=== PATIENT | female | born 1995 | race Caucasian/White ===

== ENCOUNTER 2021-04-16 13:15 | Emergency (ER) | payer BC, SELFPAY ==
[2021-04-16 14:08] VITALS: BP 126/75; PULSE 98; RESP 20; TEMP 37.1; O2SAT 100
--- NOTE | 2021-04-16 15:28 | ED.URI ---
HPI - URI/Sore Throat General Chief Complaint: Upper Respiratory Infection Stated Complaint: Cough/Chest Congestion Time Seen by Provider: 04/16/21 15:28 Source: patient and RN notes reviewed Mode of arrival: ambulatory Limitations: no limitations History of Present Illness HPI Narrative: 25-year-old female who presents to [facility] care with complaints of nasal congestion and cough which started last week did a PCR on Thursday which came back negative. Patient states Thursday she started with a fever and having body aches Thursday fever was of 101.3 she been taking [id number] NyQuil cold and flu. Patient has not had Covid or flu vaccinations MD elicited complaint: fever, cough, rhinorrhea and nasal congestion Related Data Allergies Allergy/AdvReac Type Severity Reaction Status Date / Time No Known Allergies Allergy Unverified 09/26/15 13:16 Review of Systems Review of Systems: CONSTITUTIONAL: Positive for fever, chills, or sweats. EYES: Denies visual changes, redness, or discharge. ENT: Positive rhinorrhea, congestion,no sore throat, or otalgia. CARDIOVASCULAR: Denies chest pain, palpitations, or edema. RESPIRATORY: Positive for cough no dyspnea.tightness with breathing GASTROINTESTINAL: Denies abdominal pain, nausea, vomiting, or diarrhea. GENITOURINARY: Denies dysuria or hematuria. SKIN: Denies rash or itching. MUSCULOSKELETAL: Denies back pain, joint pain, positive for body aches NEUROLOGIC: Denies headache, numbness, or weakness. PSYCHIATRIC: Denies anxiety or depression. All systems reviewed & are unremarkable except as noted in HPI and below PMFSH Past Medical History Medical History (Updated 04/18/21 @ 08:35 by Magdalene Barrera NP) Asthma Bronchitis Fracture of right wrist Pneumonia Surgical History Surgical History (Updated 04/18/21 @ 08:34 by Magdalene Barrera NP) H/O Spinal surgery for scoliosis has Graham rods Social History Social History (Updated 04/18/21 @ 08:36 by Magdalene Barrera NP) Smoking status: Never smoker Alcohol intake: current Alcohol use details: social Substance use: never Living arrangements: with family Gender identity (if verbalized by the patient): Female Comments At time of signature, agree with nursing past medical, surgical, social and family history. There is no relevant family history pertinent to the presenting complaint Exam Narrative: GENERAL:Ill-appearing, well-nourished, and in no acute distress. HEAD: Normocephalic, atraumatic. EYES: PERRLA and EOMI. ENT: Nares red with clear rhinorrhea no epistaxis. Mucous membranes moist.TM's normal with good light relex, throat red with no lesions or exudates, no tonsil enlargement NECK: Supple.no lymphadenopathy CHEST: Clear to auscultation. No respiratory distress.cough with SAO2 100% on room air HEART: Regular rate and rhythm. No murmur heard. Normal peripheral pulses. ABDOMEN: Soft, nontender, nondistended, normal active bowel sounds. EXTREMITIES: Normal range of motion. No edema. SKIN: Warm, dry, no rash. NEURO: No focal deficits. Alert and oriented x3. Course Vital Signs Vital signs: Vital Signs Temperature 37.1 C 04/16/21 14:08 Pulse Rate 98 04/16/21 14:08 Respiratory Rate 20 04/16/21 14:08 Blood Pressure 126/75 04/16/21 14:08 Pulse Oximetry 100 04/16/21 14:08 Temperature 37.1 C 04/16/21 14:08 Pulse Rate 98 04/16/21 14:08 Respiratory Rate 20 04/16/21 14:08 Blood Pressure 126/75 04/16/21 14:08 Pulse Oximetry 100 04/16/21 14:08 MDM - URI/Sore Throat Differential Diagnosis Differential diagnosis: Likely upper respiratory infection, sinusitis, viral infection, influenza and other (COVID) Medical Records Attestation: I reviewed the patient's medical records. Lab Data Attestation: I reviewed the patient's lab results. Lab results narrative: COVID antigen positive, influenza A negative, influenza B negative. Labs: Lab Results 04/16/21 Range/Units
== END 2021-04-16 15:54 | disposition home or self-care (01) ==
PROVIDERS: Emergency Provider Registered Nurse; PCP Hospitalist
DX: U07.1 COVID-19 (principal); J45.909 Unspecified asthma, uncomplicated
CPT/HCPCS: 87426; 87804; 99203; C9803; G0463

== ENCOUNTER 2023-04-06 09:05 | Emergency (ER) | payer OTHER, SELFPAY ==
[2023-04-06 09:55] VITALS: BP 142/82; PULSE 88; RESP 20; TEMP 36.3; O2SAT 98
--- NOTE | 2023-04-06 10:08 | ED.GENADULT ---
HPI - General Adult General Chief complaint: Upper Respiratory Infection Stated complaint: Nausea, Headache,Dizzy, Earache Source: patient, RN notes reviewed and old records reviewed Mode of arrival: ambulatory Limitations: no limitations History of Present Illness HPI narrative: 27-year-old female presents to [facility] with complaints sinus congestion, sinus pain and left earache that started 8 days ago. Patient taking [id number] medications with no relief. Patient denies weakness, dizziness, chest pain, cough, shortness of breath,. MD complaint: Earache Onset (ago): day(s) (8) Related Data Home Medications Medication Instructions Recorded Confirmed cetirizine 10 mg tablet 10 mg PO DAILY 04/06/23 04/06/23 Allergies Allergy/AdvReac Type Severity Reaction Status Date / Time No Known Allergies Allergy Verified 04/06/23 10:13 Review of Systems Constitutional: Constitutional: Denies body ache(s), Denies chills, Denies fatigue, Denies fever(s) and Reports headache(s) Eyes: Eyes: Reports no additional eye complaints and Denies blurry vision ENT: Reports as per HPI, Denies vertigo, Denies dizziness, Denies ear discharge, Reports otalgia, Denies facial pain, Reports headache(s), Reports nasal congestion, Reports nasal discharge, Reports sinus pain, Reports sinus pressure and Denies sore throat Cardiovascular: Cardiovascular: Reports no additional cardiovascular complaints, Denies chest pain, Denies chest pain at rest, Denies rapid heart rate and Denies dyspnea Respiratory: Respiratory: Reports no additional respiratory complaints, Denies chest congestion, Denies cough, Denies pain on inspiration, Denies pain with cough and Denies dyspnea Gastrointestinal: Gastrointestinal: Denies abdominal pain, Denies diarrhea, Denies nausea and Denies vomiting Integumentary/Breasts: Skin/Breast: Denies rash Neurologic: Reports system reviewed and no additional complaints, except as documented, Denies vertigo, Denies dizziness and Denies headache(s) Endocrine: Endocrine: Denies fatigue PMFSH Past Medical History Medical History Asthma Bronchitis Fracture of right wrist Pneumonia Surgical History Surgical History H/O Spinal surgery for scoliosis has Graham rods Social History Social History Smoking status: Never smoker Alcohol intake: current Alcohol use details: social Substance use: never Living arrangements: with family Gender identity (if verbalized by the patient): Female Comments At the time of my signature, I reviewed and agree with the nursing past medical, surgical, social, and family history. There is no relevant family history pertinent to the patient complaint. Exam Const: General: cooperative, healthy appearing, no acute distress and well nourished Nutritional Appearance: well nourished Orientation/consciousness: patient oriented x3 Limitations: no limitations HENMT: Head: normal to inspection and normocephalic Ears: external ears normal, mastoids normal, Abnormal EAC present cerumen impaction bilateral and unable to visualize TM Face/Nose/Sinus: normal facial exam Face and sinus: normal facial exam and sinus tenderness maxillary ( left) Mouth: Yes Normal oral and palatal mucosa present, Yes oropharynx normal and Yes moist mucous membranes Throat: tonsils normal, uvula midline and no uvular edema Eyes: General: appearance normal, both eyes and all related structures Sclera: sclerae normal Pupils: Equal, round and reactive pupils present Resp: Effort & Inspection: normal respiratory effort, able to speak in complete sentences, no audible wheezes, no cough, no respiratory distress and no retractions Auscultation: clear to auscultation bilaterally, no crackles, no rales, no rhonchi and no wheezes Cardio: Rate:
[2023-04-06 10:13] VITALS: BP 142/82; PULSE 88; RESP 20; TEMP 36.3; O2SAT 98
== END 2023-04-06 10:25 | disposition home or self-care (01) ==
PROVIDERS: Emergency Provider Registered Nurse; PCP Hospitalist
DX: J01.90 Acute sinusitis, unspecified (principal); B96.89 Other specified bacterial agents as the cause of diseases classified elsewhere; Z79.899 Other long term (current) drug therapy; Z20.822 Contact with and (suspected) exposure to COVID-19
CPT/HCPCS: 87426; 87804; 99213; C9803; G0463